=== PATIENT | male | born 1955 | race Caucasian/White ===

== ENCOUNTER 2017-04-18 14:58 | Inpatient (IN) | payer OTHER ==
[~2017-04-18] VITALS: Ht 177.8 cm; Wt 105.5 kg
[2017-04-18] VITALS (10 sets, daily range): BP systolic 91–121; BP diastolic 54–92; PULSE 86–137; RESP 16–24; TEMP 97.9–98.4; O2SAT 94–99
[~2017-04-18 14:58] MED LIST: ASPI81TA82 PO; FURO20TA PO; LOSA25TA31 PO; POTA-243 PO; ULTR50TA PO
--- NOTE | 2017-04-18 15:25 | PD ---
HPI Chief Complaint: Respiratory Symptoms Time Seen by Provider: 15:19 Travel History International Travel<30 days: No Contact w/Intl Traveler<30days: No Traveled to known affect area: No History of Present Illness HPI This 61-year-old male is complaining of shortness of breath. He says he been short of breath for the past for 5 days. He has no history of lung disease. He does have a history of mitral valve replacement 3 years ago. 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 He's been sweating and has had loss of appetite the last few days. He did have atrial fibrillation about a year ago and was cardioverted. He is on Coumadin now. He has not been having chest pain. PFSH Past Medical History Arthritis: Yes Asthma: No Autoimmune Disease: No Blood Disorders: No Anxiety: No Depression: No Heart Rhythm Problems: No (HEART MURMUR) Cancer: No (CANCER IN FAMILY-BOTH PARENTS) Cardiovascular Problems: No High Cholesterol: No Chest Pain: No Congestive Heart Failure: No COPD: No Cerebrovascular Accident: No Diabetes: No Diminished Hearing: No Endocrine: No Gastrointestinal Disorders: No GERD: No Genitourinary: No Hiatal Hernia: No Hypertension: Yes Immune Disorder: No Kidney Stones: No Musculoskeletal: Yes Neurologic: No Psychiatric: No Reproductive: No Respiratory: Yes Migraines: No Renal Failure: No Sleep Apnea: Yes (PAST HISTORY) Thyroid Disease: No Ulcer: No Past Surgical History Abdominal Surgery: Yes (HERNIA REPAIR 20 YEARS AGO) AICD: No Arteriovenous Shunt: No Cardiac Surgery: No Ear Surgery: No Endocrine Surgery: No Eye Surgery: No Genitourinary Surgery: No Gynecologic Surgery: No Insulin Pump: No Joint Replacement: Yes (nov 2008,right total knee, 2007,left total knee replacement) Oral Surgery: No Pacemaker: No Thoracic Surgery: No Tonsillectomy: Yes (1959) Other Surgery: Yes (bilateral carpal tunnel "bone marrow removed from right hip" ) Social History Alcohol Use: Yes ("every few months") Tobacco Use: No Substance Use: No Allergies-Medications (Allergen,Severity, Reaction): Coded Allergies: Dilaudid (Verified Allergy, Severe, "hives", 11/16/13) Reported Meds & Prescriptions Reported Meds & Active Scripts Active Reported Ultram (Tramadol HCl) 50 Mg Tab 50 Mg PO Q4H PRN K-Dur (Potassium Chloride) 10 Meq Tabcr 10 Meq PO DAILY Furosemide 20 Mg Tab 20 Mg PO DAILY Aspir-81 (Aspirin) 81 Mg Tab 81 Mg PO DAILY Cozaar (Losartan Potassium) 25 Mg Tab 50 PO DAILY Review of Systems General / Constitutional: No: Fever Eyes: No: Diploplia, Blurred Vision HENT: No: Headaches, Vertigo, Lightheadedness Cardiovascular: No: Chest Pain or Discomfort, Palpitations Respiratory: Positive: Shortness of Breath Gastrointestinal: No: Nausea, Vomiting Genitourinary: No: Urgency, Frequency Musculoskeletal: No: Myalgias, Arthralgias Skin: No Rash Neurologic: No: Weakness, Dizziness Psychiatric: No: Anxiety, Depression Hematologic/Lymphatic: No: Easy Bruising Physical Exam Narrative GENERAL: Well-developed male SKIN: Focused skin assessment warm/dry. HEAD: Atraumatic. Normocephalic. EYES: Pupils equal and round. No scleral icterus. No injection or drainage. ENT: No nasal bleeding or discharge. Mucous membranes pink and moist. NECK: Trachea midline. No JVD. CARDIOVASCULAR:rapid Regular rate and rhythm. No murmur appreciated. RESPIRATORY: No accessory muscle use. Clear to auscultation. Breath sounds equal bilaterally. GASTROINTESTINAL: Abdomen soft, non-tender, nondistended. Hepatic and splenic margins not palpable. MUSCULOSKELETAL: No obvious deformities. No clubbing. No cyanosis. No edema. NEUROLOGICAL: Awake and alert. No obvious cranial nerve deficits. Motor grossly within normal limits. Normal speech. PSYCHIATRIC: Appropriate mood and affect; insight and judgment normal. Data Data Orders Electrocardiogram (04/18/17 15:20) Complete Blood Count With Diff (04/18/17 15:20) Comprehensive Metabolic Panel (04/18/17 15:20) Troponin I (04/18/17 15:20) B-Type Natriuretic Peptide (04/18/17 15:20) Prothrombin Time / Inr (Pt) (04/18/17 15:20) Act Partial Throm Time (Ptt) (04/18/17 15:20) Blood Culture (04/18/17 15:20) Urinalysis - C+S If Indicated (04/18/17 15:20) Magnesium (Mg) (04/18/17 15:20) Chest, Single Ap (04/18/17 15:20) Ecg Monitoring (04/18/17 15:20) Blood Pressure (04/18/17 15:20) Iv Access Insert/Monitor (04/18/17 15:20) Oximetry (04/18/17 15:20) Vital Signs (04/18/17 15:20) Diltiazem Inj (Cardizem Inj) (04/18/17 15:30) Sodium Chloride 0.9% Flush (Ns Flush) (04/18/17 15:30) Diltiazem Inj (Cardizem Inj) (04/18/17 15:30) Blood Culture (04/18/17 16:10) Lactic Acid (04/18/17 16:10) Labs Laboratory Tests Test 04/18/17 15:40 White Blood Count 5.0 TH/MM3 Red Blood Count 4.73 MIL/MM3 Hemoglobin 13.5 GM/DL Hematocrit 41.0 % Mean Corpuscular Volume 86.6 FL Mean Corpuscular Hemoglobin 28.4 PG Mean Corpuscular Hemoglobin 32.8 % Concent Red Cell Distribution Width 15.2 % Platelet Count 118 TH/MM3 Mean Platelet Volume 8.9 FL Neutrophils (%) (Auto) 56.3 % Lymphocytes (%) (Auto) 33.6 % Monocytes (%) (Auto) 8.0 % Eosinophils (%) (Auto) 1.3 % Basophils (%) (Auto) 0.8 % Neutrophils # (Auto) 2.8 TH/MM3 Lymphocytes # (Auto) 1.7 TH/MM3 Monocytes # (Auto) 0.4 TH/MM3 Eosinophils # (Auto) 0.1 TH/MM3 Basophils # (Auto) 0.0 TH/MM3 CBC Comment DIFF FINAL Differential Comment MDM Medical Decision Making Medical Screen Exam Complete: Yes Emergency Medical Condition: Yes Medical Record Reviewed: Yes Differential Diagnosis EKG shows tachycardia at a rate of 1:30. He is slightly irregular and I suspect atrial fibrillation. He will be started on Cardizem drip area and lab work is pending. Lab work will be followed up by oncoming physician and disposition Narrative Course Disposition will be determined by oncoming physician Diagnosis Primary Impression: Dysrhythmia Qualified Code: I48.91 - Atrial fibrillation, unspecified type Evans Law MD Apr 18, 2017 15:25
[2017-04-18] MEDS ORDERED: DILTIAZEM HCL 25 MG/5 ML VIAL IV ONE (15:30)
[2017-04-18] MEDS ORDERED: SODIUM CHLORIDE 0.9% FLUSH 10 ML FLUSH IVF PRN (15:30)
--- NOTE | 2017-04-18 15:57 | RADRPT ---
EXAM DATE/TIME: 04/18/2017 15:35 [facility] COMPARISON: CHEST SINGLE AP, October 15, 2011, 20:10. INDICATIONS : Short of breath MEDICAL HISTORY : AFib SURGICAL HISTORY : cardiac ablation, valve replacement ENCOUNTER: Initial ACUITY: 4 - 6 days PAIN SCORE: 0/10 LOCATION: Bilateral chest FINDINGS: Mild right lung base atelectasis and/or infiltrate is seen. The right hemidiaphragm is elevated. Ther e is evidence for prior median sternotomy. Heart and mediastinum are unremarkable for technique. CONCLUSION: Mild right lung base atelectasis and/or infiltrate is seen. Vinod Woodall MD on April 18, 2017 at 15:55 Board Certified Radiologist. This report was verified electronically.
[2017-04-18 16:01] LABS: AUTOMATED NEUTROPHIL # 2.8 TH/MM3 (1.8-7.7); BASOPHIL % 0.8 % (0.0-2.0); EOSINOPHIL # 0.1 TH/MM3 (0-0.4); EOSINOPHIL % 1.3 % (0.0-4.0); HEMO FLAGS DIFF FINAL; LYMPH % 33.6 % (9.0-44.0); LYMPHOCYTE # 1.7 TH/MM3 (1.0-4.8); MEAN CELL VOLUME 86.6 FL (80.0-100.0); MEAN CORPUSCULAR HEMOGLOBIN 28.4 PG (27.0-34.0); MEAN CORPUSCULAR HGB CONC 32.8 % (32.0-36.0); NEUT % 56.3 % (16.0-70.0); PLATELET COUNT 118 TH/MM3 (150-450); RED BLOOD COUNT 4.73 MIL/MM3 (4.50-5.90); RED CELL DISTRIBUTION WIDTH 15.2 % (11.6-17.2)
--- NOTE | 2017-04-18 16:10 | PD ---
Physical Exam Date Seen by Provider: Apr 18, 2017 Time Seen by Provider: 16:07 Narrative The patient is a 61-year-old male who was initially evaluated by the previous physician, Dr. Abdul. Please refer to the initial history, physical, diagnostic evaluation, and treatment modality plan. The patient was signed out of 4 PM with laboratory evaluation and disposition pending. Data Data Orders Electrocardiogram (04/18/17 15:20) Complete Blood Count With Diff (04/18/17 15:20) Comprehensive Metabolic Panel (04/18/17 15:20) Troponin I (04/18/17 15:20) B-Type Natriuretic Peptide (04/18/17 15:20) Prothrombin Time / Inr (Pt) (04/18/17 15:20) Act Partial Throm Time (Ptt) (04/18/17 15:20) Blood Culture (04/18/17 15:20) Urinalysis - C+S If Indicated (04/18/17 15:20) Magnesium (Mg) (04/18/17 15:20) Chest, Single Ap (04/18/17 15:20) Ecg Monitoring (04/18/17 15:20) Blood Pressure (04/18/17 15:20) Iv Access Insert/Monitor (04/18/17 15:20) Oximetry (04/18/17 15:20) Vital Signs (04/18/17 15:20) Diltiazem Inj (Cardizem Inj) (04/18/17 15:30) Sodium Chloride 0.9% Flush (Ns Flush) (04/18/17 15:30) Diltiazem Inj (Cardizem Inj) (04/18/17 15:30) Blood Culture (04/18/17 16:10) Lactic Acid (04/18/17 16:10) Admit Order (Ed Use Only) (04/18/17 16:54) Labs Laboratory Tests Test 04/18/17 15:40 White Blood Count 5.0 TH/MM3 Red Blood Count 4.73 MIL/MM3 Hemoglobin 13.5 GM/DL Hematocrit 41.0 % Mean Corpuscular Volume 86.6 FL Mean Corpuscular Hemoglobin 28.4 PG Mean Corpuscular Hemoglobin 32.8 % Concent Red Cell Distribution Width 15.2 % Platelet Count 118 TH/MM3 Mean Platelet Volume 8.9 FL Neutrophils (%) (Auto) 56.3 % Lymphocytes (%) (Auto) 33.6 % Monocytes (%) (Auto) 8.0 % Eosinophils (%) (Auto) 1.3 % Basophils (%) (Auto) 0.8 % Neutrophils # (Auto) 2.8 TH/MM3 Lymphocytes # (Auto) 1.7 TH/MM3 Monocytes # (Auto) 0.4 TH/MM3 Eosinophils # (Auto) 0.1 TH/MM3 Basophils # (Auto) 0.0 TH/MM3 CBC Comment DIFF FINAL Differential Comment Prothrombin Time 34.1 SEC Prothromb Time International 2.9 RATIO Ratio Activated Partial 38.3 SEC Thromboplast Time Sodium Level 143 MEQ/L Potassium Level 4.4 MEQ/L Chloride Level 110 MEQ/L Carbon Dioxide Level 27.3 MEQ/L Anion Gap 6 MEQ/L Blood Urea Nitrogen 27 MG/DL Creatinine 0.89 MG/DL Estimat Glomerular Filtration 87 ML/MIN Rate Random Glucose 104 MG/DL Calcium Level 8.8 MG/DL Magnesium Level 2.2 MG/DL Total Bilirubin 0.7 MG/DL Aspartate Amino Transf 42 U/L (AST/SGOT) Alanine Aminotransferase 62 U/L (ALT/SGPT) Alkaline Phosphatase 93 U/L Troponin I 0.03 NG/ML B-Type Natriuretic Peptide 893 PG/ML Total Protein 6.5 GM/DL Albumin 3.7 GM/DL [facility] Medical Record Reviewed: Yes Supervised Visit with PETRA: No Interpretation(s) EKG reveals atrial flutter with a rate of 132-1 block versus atrial fibrillation with RVR. Inverted T waves noted in lead V4, V5, and V6. Inverted T waves also noted in lead 2 and aVF. Last Impressions Chest X-Ray 04/18/17 1520 Signed Impressions: Service Date/Time: Tuesday, April 18, 2017 15:35 - CONCLUSION: Mild right lung base atelectasis and/or infiltrate is seen. Vinod Woodall MD Laboratory Tests Test 04/18/17 15:40 White Blood Count 5.0 TH/MM3 Red Blood Count 4.73 MIL/MM3 Hemoglobin 13.5 GM/DL Hematocrit 41.0 % Mean Corpuscular Volume 86.6 FL Mean Corpuscular Hemoglobin 28.4 PG Mean Corpuscular Hemoglobin 32.8 % Concent Red Cell Distribution Width 15.2 % Platelet Count 118 TH/MM3 Mean Platelet Volume 8.9 FL Neutrophils (%) (Auto) 56.3 % Lymphocytes (%) (Auto) 33.6 % Monocytes (%) (Auto) 8.0 % Eosinophils (%) (Auto) 1.3 % Basophils (%) (Auto) 0.8 % Neutrophils # (Auto) 2.8 TH/MM3 Lymphocytes # (Auto) 1.7 TH/MM3 Monocytes # (Auto) 0.4 TH/MM3 Eosinophils # (Auto) 0.1 TH/MM3 Basophils # (Auto) 0.0 TH/MM3 CBC Comment DIFF FINAL Differential Comment Prothrombin Time 34.1 SEC Prothromb Time International 2.9 RATIO Ratio Activated Partial 38.3 SEC Thromboplast Time Sodium Level 143 MEQ/L Potassium Level 4.4 MEQ/L Chloride Level 110 MEQ/L Carbon Dioxide Level 27.3 MEQ/L Anion Gap 6 MEQ/L Blood Urea Nitrogen 27 MG/DL Creatinine 0.89 MG/DL Estimat Glomerular Filtration 87 ML/MIN Rate Random Glucose 104 MG/DL Calcium Level 8.8 MG/DL Magnesium Level 2.2 MG/DL Total Bilirubin 0.7 MG/DL Aspartate Amino Transf 42 U/L (AST/SGOT) Alanine Aminotransferase 62 U/L (ALT/SGPT) Alkaline Phosphatase 93 U/L Troponin I 0.03 NG/ML B-Type Natriuretic Peptide 893 PG/ML Total Protein 6.5 GM/DL Albumin 3.7 GM/DL Differential Diagnosis Differential diagnoses includes atrial flutter, atrial fibrillation with RVR, pulmonary embolism, acute coronary syndrome, valvular disorder, flash pulmonary edema, pneumonia, sepsis, ACS. Narrative Course The patient was initially evaluated by the previous physician, Dr. Abdul. Please refer to the initial history, physical, diagnostic evaluation, and treatment modality plan. The patient was signed out of 4 PM with laboratory evaluation and disposition pending. The patient was ordered Cardizem for the A. fib/A flutter with RVR. Patient is on Coumadin, INR was sent to lab. The patient's troponin is 0.03, BNP is 893. Chest x-ray reveals elevated right hemidiaphragm possible atelectasis versus infiltrate, however, patient notes he has a history of elevated right hemidiaphragm, possibly secondary to anesthesia , per his report. The patient's primary physician is Dr. Brunner and his clinical unit educator is Dr. Pham. The patient is undergone cardioversion in the past for age fibrillation after he was placed on Tikosyn. The patient is not currently on any AV annabella blockers or antiarrhythmics. Patient states he recently had an echocardiogram in the clinical unit educator office, was advised it was normal. 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 The patient is currently anticoagulated with Coumadin at 2.9. The patient's heart rate initially came down into the 80s after the Cardizem bolus, however, elevated once again, greater than 110. The patient was placed on a Cardizem drip and his rate maintained anywhere from the 80s to 110. The patient will be admitted on a Cardizem drip, he may need Dr. Pham's input into AV annabella blockers versus cardioversion once again with a history of valve replacement. The on-call [facility] physician was paged for admission at 4:46 PM. I discussed the patient with Dr. Rosales at 4:52 PM who requests transfer to [facility] at the [facility] in case the patient needs cardioversion and/or further definitive treatment. I discussed the plan of care with the patient is comfortable with this plan of care. Physician Communication Physician Communication The on-call [facility] physician was paged for admission. I discussed patient with Dr. Rosales who agrees with admission. Diagnosis Primary Impression: Atrial fibrillation with RVR Admitting Information Admitting Physician Requests: Admit Condition: Stable Samuel Constantino MD Apr 18, 2017 16:10
[2017-04-18 16:24] LABS: CHLORIDE 110 MEQ/L (98-107); POTASSIUM 4.4 MEQ/L (3.5-5.1); SODIUM (NA) 143 MEQ/L (136-145)
[2017-04-18] MEDS: DILTIAZEM INJ 125 MG in SODIUM CHLORIDE 0.9% INJ 100 ML IV SCH (16:25)
[2017-04-18 16:28] LABS: ANION GAP 6 MEQ/L (5-15); BICARBONATE 27.3 MEQ/L (21.0-32.0); BLOOD UREA NITROGEN 27 MG/DL (7-18); MAGNESIUM 2.2 MG/DL (1.5-2.5)
[2017-04-18 16:30] LABS: APTT (PATIENT) 38.3 SEC (24.3-30.1); INTERNATIONAL NORMALIZED RATIO 2.9 RATIO; PROTHROMBIN TIME - PATIENT 34.1 SEC (9.8-11.6)
[2017-04-18 16:31] LABS: ALT (GPT) 62 U/L (12-78); AST (GOT) 42 U/L (15-37); GLOMERULAR FILTRATION RATE 87 ML/MIN (>89)
[2017-04-18 16:33] LABS: TOTAL BILIRUBIN ADULT 0.7 MG/DL (0.2-1.0)
[2017-04-18 16:34] LABS: ALKALINE PHOSPHATASE 93 U/L (45-117)
[2017-04-18] MEDS ORDERED: HYDR-3583 PO (17:12)
[2017-04-18] MEDS ORDERED: LOSA50TA PO (17:12)
[2017-04-18] MEDS ORDERED: WARF-60 PO (17:12)
[2017-04-18] MEDS ORDERED: DIAZ5TAB PO (17:12)
[2017-04-18] MEDS ORDERED: TRAM50TA PO (17:12)
[2017-04-18] MEDS ORDERED: NALOXONE HCL 0.4 MG/ML AMP IV PRN (18:15)
[2017-04-18] MEDS ORDERED: SODIUM CHLORIDE 0.9% FLUSH 10 ML FLUSH IV FLUSH PRN (18:15)
[2017-04-18] MEDS ORDERED: SENNOSIDES 8.6 MG TAB PO PRN (18:15)
[2017-04-18] MEDS ORDERED: MAGNESIUM HYDROXIDE SUSP 30 ML CUP PO PRN (18:15)
[2017-04-18] MEDS ORDERED: LACTULOSE SYRUP 20 GM/30 ML CUP PO PRN (18:15)
[2017-04-18] MEDS ORDERED: FUROSEMIDE 20 MG/2 ML VIAL IV PUSH ONE (18:15)
[2017-04-18] MEDS ORDERED: ACETAMINOPHEN 325 MG TAB PO PRN (18:15)
[2017-04-18] MEDS ORDERED: BISACODYL 10 MG SUPP RECTAL PRN (18:15)
--- NOTE | 2017-04-18 18:23 | HHI.HP ---
HPI Service [facility] Hospitalists Primary Care Physician Guanaco Brunner MD Admission Diagnosis atrial fibrillation with RVR, mitral valve replacement, Coumadin the Chief Complaint: Weak,short of breath rapid heart rate for last 4 days Travel History International Travel<30 Days: No Contact w/Intl Traveler <30 Da: No Traveled to Known Affected Are: No History of Present Illness This 61-year-old male is complaining of shortness of breath. He says he been short of breath for the past for 5 days with weakness,rapid heart rate . He has no history of lung disease. He does have a history of mitral valve replacement 3 years ago. Bovine heart valve for endocarditis and has been on coumadin with therapeutic level today. Patient has history of atrail fib treated initially with medication which did not work and about 3 days later underwent cardioversion with success and has been in sinus since about 1 1/2 years ago. Patient has severe back pain and has appoint ment scheduled with pain management and was started on hydrocodone last week about same time as his symptoms above started. Patient was started on cardiazem bolus which did improve heart rate in er but rate went up a gain and then changed to drip. Patient also has elevated BNP chest xray suggests possible infiltrate and he had been on lasix in past. Will give one dose tonight. Review of Systems Respiratory: COMPLAINS OF: Shortness of breath Cardiovascular: COMPLAINS OF: Palpitations Neurologic: COMPLAINS OF: Localized weakness Past Family Social History Past Medical History parkinson,hypertension,hx elevated diaphragm, severe back pain Past Surgical History bilateral knee surgery,hernia 20years ago,tonsil,carpel tunnel Reported Medications [id number],coumadin 6mg every day except wednesday and takes 9mg ultram 50 q4h recent hydrocodone Allergies: Coded Allergies: Dilaudid (Verified Allergy, Severe, "hives", 04/18/17) Social History non smoker,non drinker Physical Exam Vital Signs Vital Signs Date Time Temp Pulse Resp B/P Pulse Ox O2 Delivery O2 Flow Rate FiO2 04/18/17 17:30 89 16 91/58 97 Room Air 04/18/17 16:30 92 16 105/61 97 Room Air 04/18/17 16:00 86 16 101/92 97 Room Air 04/18/17 15:00 16 04/18/17 15:00 98.1 137 16 107/90 99 04/18/17 15:00 99 Physical Exam GENERAL: This is a well-nourished, well-developed patient, in no apparent distress. SKIN: No rashes, ecchymoses or lesions. Cool and dry. HEAD: Atraumatic. Normocephalic. No temporal or scalp tenderness. EYES: Pupils equal round and reactive. Extraocular motions intact. No scleral icterus. No injection or drainage. ENT: Nose without bleeding, purulent drainage or septal hematoma. Throat without erythema, tonsillar hypertrophy or exudate. Uvula midline. Airway patent. NECK: Trachea midline. No JVD or lymphadenopathy. Supple, nontender, no meningeal signs. CARDIOVASCULAR: Irreg rate and rthym with systolic murmur, gallops, or rubs. RESPIRATORY: Clear to auscultation. Breath sounds equal bilaterally. No wheezes , rales, or rhonchi. GASTROINTESTINAL: Abdomen soft, non-tender, nondistended. No hepato-splenomegaly , or palpable masses. No guarding. MUSCULOSKELETAL: Extremities without clubbing, cyanosis, or edema. No joint tenderness, effusion, or edema noted. No calf tenderness. Negative Homans sign bilaterally. NEUROLOGICAL: Awake and alert. Cranial nerves II through XII intact. Motor and sensory grossly within normal limits. Five out of 5 muscle strength in all muscle groups. Normal speech. Laboratory Laboratory Tests Test 04/18/17 04/18/17 15:40 16:50 White Blood Count 5.0 Red Blood Count 4.73 Hemoglobin 13.5 Hematocrit 41.0 Mean Corpuscular Volume 86.6 Mean Corpuscular Hemoglobin 28.4 Mean Corpuscular Hemoglobin 32.8 Concent Red Cell Distribution Width 15.2 Platelet Count 118 Mean Platelet Volume 8.9 Neutrophils (%) (Auto) 56.3 Lymphocytes (%) (Auto) 33.6 Monocytes (%) (Auto) 8.0 Eosinophils (%) (Auto) 1.3 Basophils (%) (Auto) 0.8 Neutrophils # (Auto) 2.8 Lymphocytes # (Auto) 1.7 Monocytes # (Auto) 0.4 Eosinophils # (Auto) 0.1 Basophils # (Auto) 0.0 CBC Comment DIFF FINAL Differential Comment Prothrombin Time 34.1 Prothromb Time International 2.9 Ratio Activated Partial 38.3 Thromboplast Time Sodium Level 143 Potassium Level 4.4 Chloride Level 110 Carbon Dioxide Level 27.3 Anion Gap 6 Blood Urea Nitrogen 27 Creatinine 0.89 Estimat Glomerular Filtration 87 Rate Random Glucose 104 Calcium Level 8.8 Magnesium Level 2.2 Total Bilirubin 0.7 Aspartate Amino Transf 42 (AST/SGOT) Alanine Aminotransferase 62 (ALT/SGPT) Alkaline Phosphatase 93 Troponin I 0.03 B-Type Natriuretic Peptide 893 Total Protein 6.5 Albumin 3.7 Lactic Acid Level 0.8 Date/Time Procedure Status Source Growth 04/18/17 15:50 Aerobic Blood Culture Received Blood Peripheral Pending 04/18/17 15:50 Anaerobic Blood Culture Received Blood Peripheral Pending Result Diagram: 04/18/17 1540 04/18/17 1540 Imaging Last 24 hours Impressions Chest X-Ray 04/18/17 1520 Signed Impressions: Service Date/Time: Tuesday, April 18, 2017 15:35 - CONCLUSION: Mild right lung base atelectasis and/or infiltrate is seen. Vinod Woodall MD Course in er started on cardiazem drip Assessment and Plan Problem List: (1) Atrial fibrillation with RVR Status: Acute Plan: will continue cardiazem drip consult cardiology (2) Elevated brain natriuretic peptide (BNP) level Status: Acute Plan: patient was on lasix in past will give 20mg IVP tonight follow up labs Assessment and Plan further plan as case develops and response to medication Code Status full Discussed Condition With patient and family Physician Certification 2 Midnight Certification Type: Admission for Inpatient Services Order for Inpatient Services The services are ordered in accordance with Medicare regulations or non- Medicare payer requirements, as applicable. In the case of services not specified as inpatient-only, they are appropriately provided as inpatient services in accordance with the 2-midnight benchmark. Estimated LOS (days): 3 3 days is the estimated time the patient will need to remain in the hospital, assuming treatment plan goals are met and no additional complications. Post-Hospital Plan: Not yet determined Tay Rosales MD Apr 18, 2017 18:23
[2017-04-18] MEDS: traMADol HCL 50 MG TAB PO PRN (19:10)
[2017-04-18 19:27] LABS: BLOOD, URINE NEG (NEG); GLUCOSE,URINE NEG (NEG); KETONE, URINE NEG (NEG); NITRITE,URINE NEG (NEG); PH, URINE 5.5 (5.0-8.5)
[2017-04-18 19:37] LABS: MUCUS URINE MANY /lpf (OCC); URINE COLOR YELLOW (YELLW/STRAW)
[2017-04-18 19:38] LABS: SQUAMOUS EPITHELIAL CELL URINE 0-5 /hpf (0-5)
[2017-04-18 19:39] LABS: COMMENT (UR) CULT NOT INDICATED; CULTURE IF INDICATED CULT NOT INDICATED; RBC, URINE 0-3 /hpf (0-3)
[2017-04-18] MEDS: WARFARIN SOD 6 MG TAB PO SCH (19:39)
[2017-04-18] MEDS: SODIUM CHLORIDE 0.9% FLUSH 10 ML FLUSH IV FLUSH SCH (20:48)
[2017-04-18] MEDS: DOCUSATE SODIUM 50 MG/SENNA 8.6 MG TAB PO SCH (20:48)
[2017-04-19] VITALS (24 sets, daily range): BP systolic 92–121; BP diastolic 59–82; PULSE 59–112; RESP 16–18; TEMP 97.4–98.1; O2SAT 95–96
[2017-04-19] MEDS: DIAZEPAM 5 MG TAB PO PRN ×3 (00:05→23:47)
[2017-04-19] MEDS: traMADol HCL 50 MG TAB PO PRN ×5 (00:05→21:08)
[2017-04-19 06:56] LABS: AUTOMATED NEUTROPHIL # 2.8 TH/MM3 (1.8-7.7); BASOPHIL % 0.3 % (0.0-2.0); HEMATOCRIT 41.5 % (39.0-51.0); HEMO FLAGS DIFF FINAL; LYMPH % 29.9 % (9.0-44.0); LYMPHOCYTE # 1.4 TH/MM3 (1.0-4.8); MEAN CELL VOLUME 88.2 FL (80.0-100.0); MEAN CORPUSCULAR HEMOGLOBIN 28.9 PG (27.0-34.0); MEAN CORPUSCULAR HGB CONC 32.8 % (32.0-36.0); MONO % 7.2 % (0.0-8.0); NEUT % 61.6 % (16.0-70.0); PLATELET COUNT 103 TH/MM3 (150-450); RED BLOOD COUNT 4.71 MIL/MM3 (4.50-5.90); RED CELL DISTRIBUTION WIDTH 16.1 % (11.6-17.2); WHITE BLOOD COUNT 4.6 TH/MM3 (4.0-11.0)
[2017-04-19 07:24] LABS: ANION GAP 8 MEQ/L (5-15); AST (GOT) 34 U/L (15-37); BICARBONATE 24.2 MEQ/L (21.0-32.0); BLOOD UREA NITROGEN 27 MG/DL (7-18); CHLORIDE 108 MEQ/L (98-107); GLOMERULAR FILTRATION RATE 88 ML/MIN (>89); POTASSIUM 4.3 MEQ/L (3.5-5.1); SODIUM (NA) 140 MEQ/L (136-145)
[2017-04-19 07:25] LABS: ALT (GPT) 64 U/L (12-78)
[2017-04-19 07:27] LABS: ALKALINE PHOSPHATASE 90 U/L (45-117); TOTAL BILIRUBIN ADULT 1.3 MG/DL (0.2-1.0)
[2017-04-19] MEDS: SODIUM CHLORIDE 0.9% FLUSH 10 ML FLUSH IV FLUSH SCH ×2 (09:00→21:08)
[2017-04-19] MEDS ORDERED: LOSARTAN 50 MG TAB PO SCH (09:00)
[2017-04-19] MEDS ORDERED: MISCELLANEOUS NURSING INFORMATION ONE (09:00)
[2017-04-19] MEDS: DOCUSATE SODIUM 50 MG/SENNA 8.6 MG TAB PO SCH ×2 (09:03→21:07)
--- NOTE | 2017-04-19 09:41 | HHI.PR ---
Subjective Remarks Pt denies chest pain or palpitations. Pt's HR is spiking into the 140 with minimal activity. Objective Vitals Vital Signs Date Time Temp Pulse Resp B/P Pulse Ox O2 Delivery O2 Flow Rate FiO2 04/19/17 08:00 97.9 59 18 121/82 95 04/19/17 08:00 95 04/19/17 07:01 16 04/19/17 06:00 86 04/19/17 05:00 86 04/19/17 04:00 92 04/19/17 03:00 97.9 93 18 113/75 95 04/19/17 03:00 86 04/19/17 02:00 88 04/19/17 01:00 88 04/19/17 00:00 86 04/18/17 23:00 98.4 88 22 107/59 94 04/18/17 23:00 96 04/18/17 22:00 114 04/18/17 21:00 130 04/18/17 19:44 86 20 105/54 94 Room Air 04/18/17 19:10 86 20 114/64 97 Room Air 04/18/17 19:10 Room Air 04/18/17 19:00 91 16 100/62 97 04/18/17 19:00 97.9 132 24 121/90 97 04/18/17 17:30 89 16 91/58 97 Room Air 04/18/17 16:30 92 16 105/61 97 Room Air 04/18/17 16:00 86 16 101/92 97 Room Air 04/18/17 15:00 16 04/18/17 15:00 98.1 137 16 107/90 99 04/18/17 15:00 99 04/18/17 04/18/17 04/19/17 15:00 23:00 07:00 Intake Total 610 ml Output Total 725 ml Balance -115 ml Intake Oral 480 ml IV Total 130 ml Output Urine Total 725 ml Result Diagram: 04/19/17 0625 04/19/1725 Imaging Last 24 hours Impressions Chest X-Ray 04/18/17 1520 Signed Impressions: Service Date/Time: Tuesday, April 18, 2017 15:35 - CONCLUSION: Mild right lung base atelectasis and/or infiltrate is seen. Vinod Woodall MD Objective Remarks GENERAL: This is a well-nourished, well-developed patient, in no apparent distress. CARDIOVASCULAR: Regular rate and rhythm without murmurs, gallops, or rubs. RESPIRATORY: Clear to auscultation. Breath sounds equal bilaterally. No wheezes , rales, or rhonchi. GASTROINTESTINAL: Abdomen soft, non-tender, nondistended. Normal active bowel sounds MUSCULOSKELETAL: Extremities without clubbing, cyanosis, or edema. NEURO: Alert & Oriented x4 to person, place, time, situation. Moves all ext x4 A/P Problem List: (1) Atrial fibrillation with RVR Status: Acute Plan: - h/o bovine MVR approximately [address] Roque - Per pt, underwent MAIZE procedure at the time of the MVR - h/o cardioversion for a fib approximately [address] Lovelace - Await input from Cardiology, Dr. Pham. - Pt is on coumadin - IV cardizem - start cardizem 30mg PO q6h (2) Elevated brain natriuretic peptide (BNP) level Status: Acute Plan: - BNP improved, 893 (04/18/17), 623 (04/19) - Pt received one dose of IV lasix last night - Pt is stable on RA. (3) HTN (hypertension) Status: Chronic Plan: - cozaar, stop since give nifedipine - observe (4) Spinal stenosis, lumbar Status: Acute Plan: - s/p laminectomy - ultram prn - request PT evaluation Problem Qualifiers (1) HTN (hypertension): Qualified Code: I10 - Essential hypertension Owen Webster DO Apr 19, 2017 09:41
[2017-04-19] MEDS: DILTIAZEM HCL 30 MG TAB PO SCH ×3 (09:59→17:31)
[2017-04-19] MEDS: WARFARIN SOD 6 MG TAB PO SCH (16:13)
[2017-04-19 16:26] LABS: INTERNATIONAL NORMALIZED RATIO 3.2 RATIO; PROTHROMBIN TIME - PATIENT 37.8 SEC (9.8-11.6)
[2017-04-19] MEDS: DILTIAZEM INJ 125 MG in SODIUM CHLORIDE 0.9% INJ 100 ML IV SCH (16:29)
[2017-04-19] MEDS ORDERED: FUROSEMIDE 20 MG/2 ML VIAL IV PUSH ONE (21:00)
[2017-04-19] MEDS: DILTIAZEM HCL 60 MG TAB PO SCH (23:47)
[2017-04-20] VITALS (24 sets, daily range): BP systolic 106–128; BP diastolic 62–79; PULSE 66–106; RESP 18–20; TEMP 97.2–98.6; O2SAT 95–97
[2017-04-20] MEDS: traMADol HCL 50 MG TAB PO PRN ×4 (05:49→20:07)
[2017-04-20] MEDS: DILTIAZEM HCL 60 MG TAB PO SCH ×3 (05:49→17:55)
[2017-04-20 06:34] LABS: INTERNATIONAL NORMALIZED RATIO 3.7 RATIO; PROTHROMBIN TIME - PATIENT 43.5 SEC (9.8-11.6)
[2017-04-20] MEDS: SODIUM CHLORIDE 0.9% FLUSH 10 ML FLUSH IV FLUSH SCH ×2 (09:00→20:05)
[2017-04-20] MEDS: DOCUSATE SODIUM 50 MG/SENNA 8.6 MG TAB PO SCH ×2 (09:00→20:07)
--- NOTE | 2017-04-20 11:45 | MB ---
cc: JESSICA BRUNNER MD SCHWARTZ, EDWARD B. DO WANG,JAYCE LOPEZ MD DATE OF CONSULTATION: 04/19/2017 DATE OF : 1955 REASON FOR CONSULTATION Management of atrial fibrillation. HISTORY OF PRESENT ILLNESS Mr. Cee is a 61-year-old gentleman well-known to me. I have known him for a few years. He initially presented with endocarditis, contributed by a dental procedure and epidural abscess. He did have flail mitral valve leaflets status post mitral valve replacement by Dr. Jude mckeon in 2013. He did have atrial fibrillation post-op and had a cardioversion with Dr. Lovelace. Afterwards he was put on Tikosyn for some time. He has been taken off Tikosyn for about two years. He does have hypertension and has intermittent severe back pain. Over the last few weeks he has had a flare of low back pain and was prescribed OxyContin. Since then he has been feeling weak and dyspneic and was found to have atrial fibrillation. He was admitted. So far he is on Cardizem 30 mg q.i.d. along with IV Cardizem low-dose with heart rate ranging from 70s to 110s. Echocardiogram was done in March 2017 and showed EF 50% with mild mitral regurgitation. He also had moderate tricuspid regurgitation. PMH as above. PAST MEDICAL HISTORY He also has Parkinson's disease, elevated right-sided diaphragm and severe back pain. PAST SURGICAL HISTORY 1. Bilateral knee surgery. 2. Hernia surgery. 3. Tonsillectomy. 4. Carpal tunnel surgery. MEDICATIONS 1. Coumadin 9 mg alternating with 6 mg. 2. Cardizem 30 mg q.6h. 3. Tramadol. ALLERGIES DILAUDID. SOCIAL HISTORY He does not smoke or drink a large amount of alcohol. REVIEW OF SYSTEMS HEENT: Normal. GI: No nausea or vomiting. : No dysuria. MSK: Fatigue. CVS: As above. He has some dyspnea. ENDOCRINE: Normal. SKIN: Normal. PSYCH: Normal. 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 PHYSICAL EXAMINATION VITAL SIGNS: The patient has been in atrial fibrillation with heart rate ranging from 60s to 110s. So far BP is on the low side at 114/67, occasionally in the 90s. O2 sat is 95% on room air. HEENT: Normal oral exam. PERRLA. NECK: There is no thyroid enlargement. There is lymphadenopathy. LUNGS: Decreased breath sounds bilaterally but no wheezing. CARDIOVASCULAR: Irregular. Occasional tachycardia. Open heart scar is noted. No loud murmurs. ABDOMEN: Active bowel sounds in all four quadrants. : Deferred. EXTREMITIES: All range of motion intact. There are some tremors. PSYCH: Good mood and good judgment. NEUROLOGIC: Again, the patient has some tremors but alert and oriented x3. No focal neurologic deficits. LABORATORY INR 3.2. Potassium 4.3. Creatinine 0.88. BNP 623. ASSESSMENT 1. Recurrent atrial fibrillation with some tachycardia. 2. Generalized weakness along with some dyspnea. 3. Some lower extremity swelling, could be chronic diastolic CHF. 4. Status post bovine MVR. 5. Tremor. PLAN We are aiming for rate control at this moment. I have increased Cardizem to 6 mg q.i.d. and taper off the IV Cardizem drip. If he feels okay he can be discharged home with outpatient follow-up. I did discuss other options including cardioversion but the recurrence of atrial fibrillation is quite high. He also has mitral valve endocarditis status post MVR. There is a fair chance the patient may need more than one ablation to achieve the best success rate. I will discuss with him in more detail as an outpatient. Coumadin will be continued to keep INR between 2 and 3. Hopefully with rate control and IV diuretics his symptoms will improved. I will consider sending him home with p.o. Cardizem and consider outpatient possible ablation versus cardioversion. I would like to thank Dr. Webster and Dr. Brunner for allowing me to participate in the care of Mr. Cee. MD MARTHA Arambula/CATRACHITA /8:18 PM /11:49 AM
--- NOTE | 2017-04-20 14:23 | EKG ---
Date Performed: 04/18/2017 Time Performed: 15:08:26 PTAGE: 61 years EKG: ATRIAL FLUTTER/TACHYCARDIA WITH RAPID VENTRICULAR RESPONSE MARKED RIGHT AXIS DEVIATION POSS IBLE ANTERIOR MYOCARDIAL INFARCTION MODERATE T-WAVE ABNORMALITY, CONSIDER LATERAL ISCHEMIA MODERATE T -WAVE ABNORMALITY, CONSIDER INFERIOR ISCHEMIA Compared to previous tracing the patient is now in atri al flutter with rapid v. response ABNORMAL ECG PREVIOUS TRACING : 04/19/2014 13.50 DOCTOR: Michelle Walters Interpretating Date/Time 04/20/2017 14:22:45
--- NOTE | 2017-04-20 14:32 | HHI.PR ---
Subjective Remarks Pt denies chest pain, palpitations, or SOB. Objective Vitals Vital Signs Date Time Temp Pulse Resp B/P Pulse Ox O2 Delivery O2 Flow Rate FiO2 04/20/17 14:20 67 04/20/17 13:02 96 04/20/17 12:05 103 04/20/17 11:48 91 04/20/17 11:32 98.6 91 20 128/79 96 04/20/17 10:46 16 04/20/17 10:00 90 04/20/17 09:08 104 04/20/17 08:00 106 04/20/17 07:00 84 04/20/17 07:00 98.0 98 20 109/69 97 04/20/17 07:00 100 04/20/17 05:00 70 04/20/17 04:00 66 04/20/17 04:00 97.2 91 18 121/69 96 04/20/17 03:00 76 04/20/17 02:00 72 04/20/17 01:00 84 04/20/17 00:00 97.7 86 18 106/71 96 04/20/17 00:00 85 04/19/17 23:00 102 04/19/17 22:00 84 04/19/17 21:00 78 04/19/17 20:00 82 04/19/17 20:00 97.4 108 18 92/76 96 04/19/17 19:00 84 04/19/17 18:00 78 04/19/17 17:00 78 04/19/17 16:00 80 04/19/17 16:00 98.1 72 18 114/67 95 04/19/17 15:00 80 04/19/17 04/19/17 04/20/17 15:00 23:00 07:00 Intake Total 690 ml 273 ml Output Total 800 ml 1000 ml Balance -110 ml -727 ml Intake Oral 620 ml 240 ml IV Total 70 ml 33 ml Output Urine Total 800 ml 1000 ml # Bowel Movements 1 0 Result Diagram: 04/19/17 0625 04/19/17 0625 Imaging Last 24 hours Impressions Chest X-Ray 04/18/17 1520 Signed Impressions: Service Date/Time: Tuesday, April 18, 2017 15:35 - CONCLUSION: Mild right lung base atelectasis and/or infiltrate is seen. Vinod Woodall MD Objective Remarks GENERAL: This is a well-nourished, well-developed patient, in no apparent distress. CARDIOVASCULAR: irregular RESPIRATORY: Clear to auscultation. Breath sounds equal bilaterally. No wheezes , rales, or rhonchi. GASTROINTESTINAL: Abdomen soft, non-tender, nondistended. Normal active bowel sounds MUSCULOSKELETAL: Extremities without clubbing, cyanosis, or edema. NEURO: Alert & Oriented x4 to person, place, time, situation. Moves all ext x4 A/P Problem List: (1) Atrial fibrillation with RVR Status: Acute Plan: - comgmt with Cardiology, Dr. Pham - h/o bovine MVR approximately [address] Roque - Per pt, underwent MAIZE procedure at the time of the MVR - h/o cardioversion for a fib approximately [address] Lovelace - change from cardizem to cardizem CD in AM - if pt remains stable, then anticipate d/c to home 04/21/17 - INR 3.7 (04/20/17) - hold coumadin & repeat INR in AM - supportive care (2) Elevated brain natriuretic peptide (BNP) level Status: Acute Plan: - BNP improved, 893 (04/18/17), 623 (04/19) - Pt received one dose of IV lasix last night - Pt is stable on RA. (3) HTN (hypertension) Status: Chronic Plan: - cozaar, stop since give nifedipine - observe (4) Spinal stenosis, lumbar Status: Acute Plan: - s/p laminectomy - ultram prn - request PT evaluation Problem Qualifiers (1) HTN (hypertension): Qualified Code: I10 - Essential hypertension Owen Webster DO Apr 20, 2017 14:32
[2017-04-20] MEDS ORDERED: WARFARIN SOD 3 MG TAB PO SCH (16:00)
[2017-04-21] VITALS (21 sets, daily range): BP systolic 100–131; BP diastolic 53–87; PULSE 62–84; RESP 18; TEMP 97.6–98.4; O2SAT 95–98
[2017-04-21] MEDS: traMADol HCL 50 MG TAB PO PRN ×3 (00:03→12:58)
[2017-04-21] MEDS: DIAZEPAM 5 MG TAB PO PRN (00:03)
[2017-04-21] MEDS: DILTIAZEM HCL 60 MG TAB PO SCH (00:03)
[2017-04-21 06:45] LABS: INTERNATIONAL NORMALIZED RATIO 3.3 RATIO
[2017-04-21] MEDS ORDERED: DILTIAZEM-CD 240 MG CAP ER PO SCH (07:00)
[2017-04-21] MEDS: SODIUM CHLORIDE 0.9% FLUSH 10 ML FLUSH IV FLUSH SCH (08:26)
[2017-04-21] MEDS: DOCUSATE SODIUM 50 MG/SENNA 8.6 MG TAB PO SCH (08:26)
--- NOTE | 2017-04-21 09:27 | HHI.DS ---
Discharge Summary Admission Date Apr 18, 2017 at 16:56 Discharge Date: Apr 21, 2017 Admitting Diagnosis atrial fibrillation with RVR, mitral valve replacement, Coumadin the (1) Atrial fibrillation with RVR Diagnosis: Principal (2) Elevated brain natriuretic peptide (BNP) level Diagnosis: Principal (3) HTN (hypertension) Diagnosis: Secondary (4) Spinal stenosis, lumbar Diagnosis: Secondary Consultants Dr. Guanaco Pham, Cardiology Brief History This 61-year-old male is complaining of shortness of breath. He says he been short of breath for the past for 5 days with weakness,rapid heart rate . He has no history of lung disease. He does have a history of mitral valve replacement 3 years ago. Bovine heart valve for endocarditis and has been on coumadin with therapeutic level today. Patient has history of atrail fib treated initially with medication which did not work and about 3 days later underwent cardioversion with success and has been in sinus since about 1 1/2 years ago. Patient has severe back pain and has appoint ment scheduled with pain management and was started on hydrocodone last week about same time as his symptoms above started. Patient was started on cardiazem bolus which did improve heart rate in er but rate went up a gain and then changed to drip. Patient also has elevated BNP chest xray suggests possible infiltrate and he had been on lasix in past. Will give one dose tonight. CBC/BMP: 04/19/17 0625 04/19/17 0625 Significant Findings Laboratory Tests Test 04/18/17 04/18/17 04/19/17 04/19/17 15:40 19:15 06:25 15:48 Platelet Count 118 TH/MM3 103 TH/MM3 (150-450) (150-450) Prothrombin Time 34.1 SEC 37.8 SEC (9.8-11.6) (9.8-11.6) Activated Partial 38.3 SEC Thromboplast Time (24.3-30.1) Chloride Level 110 MEQ/L 108 MEQ/L (98-107) (98-107) Blood Urea Nitrogen 27 MG/DL (7-18) 27 MG/DL (7-18) Estimat Glomerular Filtration 87 ML/MIN (>89) 88 ML/MIN (>89) Rate Aspartate Amino Transf 42 U/L (15-37) (AST/SGOT) B-Type Natriuretic Peptide 893 PG/ML 623 PG/ML (0-100) (0-100) Urine Hyaline Casts 3-5 /lpf (RARE) Urine Mucus MANY /lpf (OCC) Urine Sperm FEW (NONE) Total Bilirubin 1.3 MG/DL (0.2-1.0) Total Protein 6.3 GM/DL (6.4-8.2) Test 04/20/17 04/21/17 05:40 05:55 Prothrombin Time 43.5 SEC 39.0 SEC (9.8-11.6) (9.8-11.6) Imaging Last Impressions Chest X-Ray 04/18/17 1520 Signed Impressions: Service Date/Time: Tuesday, April 18, 2017 15:35 - CONCLUSION: Mild right lung base atelectasis and/or infiltrate is seen. Vinod Woodall MD PE at Discharge GENERAL: This is a well-nourished, well-developed patient, in no apparent distress. CARDIOVASCULAR: irregular RESPIRATORY: Clear to auscultation. Breath sounds equal bilaterally. No wheezes , rales, or rhonchi. GASTROINTESTINAL: Abdomen soft, non-tender, nondistended. Normal active bowel sounds MUSCULOSKELETAL: Extremities without clubbing, cyanosis, or edema. NEURO: Alert & Oriented x4 to person, place, time, situation. Moves all ext x4 Hospital Course (1) Atrial fibrillation with RVR Status: Acute Plan: - comgmt with Cardiology, Dr. Pham - h/o bovine MVR approximately [address] Roque - Per pt, underwent MAIZE procedure at the time of the MVR - h/o cardioversion for a fib approximately [address] Lovelace - Pt changed from cardizem 60mg q6h to cardizem CD 240mg in AM 04/21/17 and observed 6 hours prior to discharge - INR 3.7 (04/20/17), INR 3.3 () - Pt to hold again tonight (04/21) and resume previous Coumadin dosing 6mg nightly on 04/22/17 - Obtain repeat INR at outpt lab on 04/26/17 with results to be sent to PCP, Dr. Guanaco Brunner. - see discharge orders - f/u with PCP, Dr. Guanaco Brunner, in 1 week - f/u with Cardiology, Dr. Guanaco Pham in 2 weeks (2) Elevated brain natriuretic peptide (BNP) level Status: Acute Plan: - BNP improved, 893 (04/18/17), 623 (04/19) - Pt is stable on RA. (3) HTN (hypertension) Status: Chronic Plan: - cozaar, stop started on nifedipine - observe (4) Spinal stenosis, lumbar Status: Acute Plan: - s/p laminectomy - ultram prn - Pt seen by PT, no home PT needs. Pt Condition on Discharge: Stable Discharge Disposition: Discharge Home Discharge Instructions DIET: Follow Instructions for: Heart Healthy Diet Speech Therapy-Diet Recommends: Regular Activities you can perform: Regular-No Restrictions Follow up Referrals: Cardiology - 2 Weeks with Sandra Pham MD PCP Follow-up - [address] Guanaco Brunner New Medications: Diltiazem CD 24 HR (Cardizem CD 24 HR) 240 Mg Caper 240 MG PO DAILY@07 Atrial Fibrillation #30 Ref 0 CAP Tramadol (Ultram) 50 Mg Tab 50 MG PO Q4H PRN PAIN SCALE 1 TO 10 #15 Ref 0 TAB Changed Medications: Warfarin (Warfarin) 6 Mg Tab 6 MG PO DAILY Resume on 04/22/17 Change home coumadin dosing: previous 9mg Tue & Sat with 6mg other days NEW: 9mg Sat & 6mg other days Blood Clot Prevention # 30 Ref 0 TAB (Medication details modified) Continued Medications: Diazepam (Diazepam) 5 Mg Tab 5 MG PO TID PRN ANXIETY Ref 0 TAB Discontinued Medications: Hydrocodone-Acetaminophen (Hydrocodone-Acetaminophen) 10-325 mg Tab 1 TAB PO Q6H PRN PAIN Ref 0 TAB Losartan (Losartan) 50 Mg Tab 50 MG PO DAILY Blood Pressure Management #30 Ref 0 TAB Tramadol (Tramadol) 50 Mg Tab 50 MG PO Q4H PRN PAIN Ref 0 TAB Owen Webster DO Apr 21, 2017 09:27
[2017-04-21] MEDS ORDERED: CARD240C6 PO (09:38)
[2017-04-21] MEDS ORDERED: ULTR50TA5 PO (09:38)
[2017-04-21] MEDS ORDERED: WARF-60 PO (09:38)
--- NOTE | 2017-04-21 09:42 | HHI.DCPOC ---
Discharge Care Plan Diagnosis: (1) Atrial fibrillation with RVR (2) HTN (hypertension) (3) Elevated brain natriuretic peptide (BNP) level (4) Spinal stenosis, lumbar Goals to Promote Your Health * To prevent worsening of your condition and complications * To maintain your health at the optimal level Directions to Meet Your Goals Take your medications as prescribed Follow your dietary instruction Follow activity as directed Keep your appointments as scheduled Take your immunizations and boosters as scheduled If your symptoms worsen call your PCP, if no PCP go to Urgent Care Center or Emergency Room Smoking is Dangerous to Your Health. Avoid second hand smoke Call the 24-hour hour crisis hotline for domestic abuse at Owen Webster DO Apr 21, 2017 09:42
== END 2017-04-21 16:20 | disposition home or self-care (01) | DRG 310 ==
LOC: PHED 14:58 → PHEDA 16:56 → HCIS 20:08
PROVIDERS: ADMIT Hospitalist; ATTEND Hospitalist
DX: I48.91 Unspecified atrial fibrillation (principal); G20 Parkinson's disease; Z95.3 Presence of xenogenic heart valve; I10 Essential (primary) hypertension; M19.90 Unspecified osteoarthritis, unspecified site; Z96.653 Presence of artificial knee joint, bilateral; G89.29 Other chronic pain; M54.5 Low back pain; M48.06 Spinal stenosis, lumbar region; Z79.82 Long term (current) use of aspirin; Z79.01 Long term (current) use of anticoagulants
CPT/HCPCS: 71010; 80053; 81001; 83605; 83735; 83880; 84484; 85025; 85610; 85730; 87040; 93005; 96365; 96375; J1940